=== PATIENT | female | born 1940 | race Caucasian/White ===

== ENCOUNTER 2023-08-03 07:40 | Outpatient (RCR) | payer MEDICARE, OTHER, SELFPAY ==
[2023-08-03 08:04] VITALS: BP 105/45; PULSE 68; RESP 18; TEMP 35.6; BMI 23.7
--- NOTE | 2023-08-03 09:19 | PCM.WC.HP ---
History of Present Illness Date of Service: 08/03/23 Chief Complaint: coccyx ulcer History of Wound: Dave is a sweet 82 yo woman that presents to the wound healing center today for evaluation and treatment of a coccyx ulcer that has been present for some time. She was referred here by [facility] where she resides in assisted living. She is paraplegic and was in custodial after she had a fall which caused her to have some nerve damage to her left arm and effected her ability to transfer herself but she has undergone PT and OT and is able to be mostly independent at this time and is able to perform transfers independently. She denies having problems with wound healing in the past. She is relatively healthy aside from her paraplegia. Initially, she was treating the ulcer with neosporin and gold stephens lotion but the nursing facility started using Santyl and a foam dressing approx. 07/26/23. She denies any pain, increased drainage or erythema. She recently was treated with Bactrim for a UTI. [facility] Medical History Emphysema/COPD Anemia Paraplegia Hx of spinal cord injury Home Medications ?Medication ?Instructions ?Recorded ?Last Taken ?Type calcium carbonate 600 mg-vitamin 1 tab PO DAILY 08/03/23 Unknown History D3 5 mcg (200 unit) tablet (Calcium 600 + D(3)) gabapentin 600 mg tablet 600 mg PO TID 08/03/23 Unknown History menthol-zinc oxide 0.2 %-20 % 1 applic topical TID 08/03/23 Unknown History topical paste (Remedy Calazime Protect Paste) morphine 15 mg tablet,extended 15 mg PO Q8H 08/03/23 Unknown History release (MS Contin) multivitamin with iron-mineral 1 tab PO DAILY 08/03/23 Unknown History oxybutynin chloride 10 mg 10 mg PO DAILY 08/03/23 Unknown History tablet,extended release 24 hr sertraline 100 mg tablet (Zoloft) 100 mg PO DAILY 08/03/23 Unknown History sulfamethoxazole 800 1 tab PO BID 08/03/23 Unknown History mg-trimethoprim 160 mg tablet (Bactrim DS) vit C 250 mg-vit E 90 mg-zinc 40 1 tab PO DAILY 08/03/23 Unknown History mg-copper 1 [id number] capsule (PreserVision AREDS-2) Allergy/AdvReac Type Severity Reaction Status Date / Time No Known Allergies Allergy Verified 08/03/23 08:21 Family History no significant family his no significant family history Surgical History Hx of lumbosacral spine surgery Social History Smoking Status: Never smoker ROS Constitutional Constitutional: Denies chills, fatigue or fever(s) Eyes Eyes: Denies blurry vision, change in vision or loss of vision ENT HEENT: Denies dysphagia, hearing loss or sore throat Cardiovascular Cardiovascular: Denies chest pain, edema or palpitations Respiratory/Chest Respiratory/Chest: Denies dry cough, dyspnea, dyspnea on exertion, productive cough or wheezing Gastrointestinal Gastrointestinal: Denies diarrhea, nausea or vomiting Genitourinary Genitourinary: Denies dysuria or polyuria Musculoskeletal Musculoskeletal: Denies arthralgias, joint stiffness or muscle weakness Integumentary Integumentary: Reports erythema and wounds Neurologic Neurologic: Denies dizziness, memory loss or weakness Psychiatric Psychiatric: Denies homicidal ideation or suicidal ideation Endocrine Endocrinology: Denies polydipsia, polyphagia or polyuria Hematologic/Lymphatic Hematologic/Lymphatic: Denies easy bleeding or easy bruising Allergic/Immunologic Allergic/Immunologic: Denies throat swelling, tongue swelling or urticaria Vital Signs Vital Signs Vital Signs: 08/03/23 08:04 Temperature 96.1 F L Temperature Source Temporal Pulse Rate 68 Respiratory Rate 18 Blood Pressure 105/45 L Blood Pressure Mean 65 Blood Pressure Source Monitor Blood Pressure Position Semi-Fowlers Blood Pressure Location Left Arm Oxygen Delivery Method Room Air Weight Weight: 65.771 kg Body Mass Index (BMI) 23.7 Physical Exam Const alert, oriented x3 and no apparent distress General Appearance: cooperative and comfortable HEENT normocephalic and head/scalp atraumatic Resp normal respiratory effort Effort and Inspection: able to speak in complete sentences Cardio regular rate and regular rhythm Skin Wounds: wounds noted Wound Narrative: as in clinical panel Psych mental status grossly normal, thought process normal, cooperative and affect normal Debridement Note Debridement Note Wound debrided: left buttock ulcer Laterality: Left Wound Grade/Stage: Stage III Type of Debridement: Excisional debridement Anesthesia Used: 5% Lidocaine Gel Depth: Down to and including healthy tissue and in the subcutaneous layer Percentage of wound debrided: 100 Instrument Used: 5mm curette Tissue Removed: Yellow slough, devitalized tissue Severity: Fat Layer Exposed Amount of bleeding with debridement: Mild Bleeding Controlled with: Compression and gauze Patient tolerated procedure: Patient tolerated procedure well Post-Debridement Measurements and Additional Note: Post-Debridement Measurements/Treatment RACHAEL - Nurse 1 - General Ulcer Assessment Start: 08/03/23 08:01 Freq: Status: Active Protocol: BAKARI Activity Type Activity Date Activity User E-sign Co-sign Detail Recorded Client Recorded Date Recorded By Document 08/03/23 08:04 KW ; 08/03/23 08:20 KW 08/03/23 08:04 WC - Today's Visit Information Type of service Initial Visit Arrival Mode Wheelchair Transfer Assistance Transfer Board Accompanied by sister Patient Identification Verified (Name & Yes ) Height and Weight Height 5 ft 5.5 in Weight 65.771 kg Weight in Pounds 145.0 lbs Weight Measurement Method Estimated by Patient Body Mass Index (BMI) 23.7 BMI Classification Normal BSA - Kylee 1.74 Vital Signs Temperature (97.8 F-99.1 F) 96.1 F L Temperature Source Temporal Pulse Rate (60-100) 68 Pulse Location Monitor Respiratory Rate (12-18) 18 Respiratory rate source Observation Oxygen Delivery Method Room Air Blood Pressure (90/60-120/80) 105/45 L Blood Pressure Mean 65 Source Monitor Position Semi-Fowlers Blood Pressure Location Left Arm History Since Last Visit- (Skip if this is Patient's initial visit) Left Footwear Regular Shoe Right Footwear Regular Shoe Pain Scale: 0-10 Numeric Is Patient Pain Free? Yes Communication Assessment Preferred language [place] [employer]poon Engagement Planning Operator Required No Able to Read Yes Able to Write Yes Communication Tools None Caregiver Communication Skills No Impairment Impairment Right Hearing Abillity Normal Left Hearing Abillity Normal Visual Assistive Devices Glasses Teaching Assessment Preferences Verbal,Written, Demonstration Barriers to Learning None Readiness To Learn Excellent Willingness to Engage in Self Management High Activies Readiness to Engage in Self Management High Activities Anxiety Level Calm Cooperation Cooperative Perception Coherent Interest in Health Problem Asks Questions Education Importance Acknowledges Need Does Patient Smoke tobacco or other Yes substances Smoking Status Never smoker Is Patient Diabetic No Functional Assessment Recent Decline in Ability to Perform Bathing,Lower Body Dressing, Toileting, Transferring Culture/Denominational/Client Analyst Cultural/Denominational Needs that may affect No Treatment Plan Would you allow our hospital pacu nurse to No meet you for the purpose of spiritual/ emotional support? Client Analyst to contact place of caodaism No WC - Nurse 1 - General Ulcer Measurement Start: 08/03/23 08:01 Freq: Status: Active Protocol: Activity Type Activity Date Activity User E-sign Co-sign Detail Recorded Client Recorded Date Recorded By Document 08/03/23 08:04 KW ; 08/03/23 08:20 KW 08/03/23 08:04 Wound Center Nurse 1 #1 Coccyx -Current Size (cm) - Length 1.4 -Current Size (cm) - Width 1 -Current Size (cm) - Depth 0.2 -Total Square Cm 1.4 -Date of Last Picture (Recall this 08/03/23 field) -Exudate Amt Small -Exudate Type Serosanguineous -Wound Margin Distinct, Outline Attached -Granulation Amt Medium (34-66%) -Granulation Quality [place] -Necrosis Amt Medium (34-66%) -Necrotic Tissue Type Adherent Slough -Texture (Elda-wound Skin Appearance) Assessed -Moisture (Elda-wound Skin Appearance) Maceration -Color (Elda-wound Skin Appearance) Assessed -Temperature (Elda-wound Skin No Abnormality Appearance) (Pt Warm) -Ulcer Cleansing Soap and Water -Foul Odor after Cleansing No -Anesthetic Used 5% Lidocaine Gel RACHAEL - Nurse 2 - General Ulcer CM Notes Start: 08/03/23 08:01 Freq: Status: Active Protocol: Activity Type Activity Date Activity User E-sign Co-sign Detail Recorded Client Recorded Date Recorded By Document 08/03/23 08:33 GM 08/03/23 08:46 08/03/23 08:33 Wound Center Nurse 2 -Time 08:34 -Correct Patient Yes -Correct Side, Site, Position Yes -Correct Procedure Yes -Procedure Performed Yes -Type of Procedure Debridement -Clinical Debridement Subcutaneous -Tissue Removed Subcutaneous -Post Debridement (cm) - Length 1.2 -Post Debridement (cm) - Width 1.0 -Post Debridement (cm) - Depth 0.2 -Total Square (Post) (cm) 1.20 -Area of Debridement (cm) - Length 1.2 -Area of Debridement (cm) - Width 1.0 -Total Square (Area) (cm) 1.20 -Tunneling No -Undermining/Tunneling No -Circular Undermining No -Wound/Ulcer Outcome Not Healed -Ulcer Cleansing Rinsed/ Irrigated with Saline -Foul Odor after Cleansing No -Bioengineered Tissue No -Bleeding Controlled with Pressure -Treatment Response Procedure Tolerated Well -Debridement - Subq, 1st 20sq cm Yes Pain Scale: 0-10 Numeric Is Patient Pain Free? Yes Assessment/Plan Assessment/Plan (1) Decubitus ulcer of coccygeal region, stage 3: CODE(S): L89.153 - Pressure ulcer of sacral region, stage 3 (2) Emphysema/COPD: CODE(S): J43.9 - Emphysema, unspecified QUALIFIERS: Emphysema type: unspecified Qualified Code(s): J43.9 - Emphysema, unspecified (3) Anemia: CODE(S): D64.9 - Anemia, unspecified QUALIFIERS: Anemia type: unspecified type Qualified Code(s): D64.9 - Anemia, unspecified (4) Paraplegia: CODE(S): G82.20 - Paraplegia, unspecified (5) Polyneuropathy: CODE(S): G62.9 - Polyneuropathy, unspecified (6) Venous insufficiency: CODE(S): I87.2 - Venous insufficiency (chronic) (peripheral) PLAN: Plan Debridement performed today in clinic as annotated above. At home wound-care instructions: Will have her dress the ulcer with Promogran moistened with saline lightly and cover with silicone foam dressing changed daily for moderate drainage. Keep dressing clean and dry. Off-loading: The patient was instructed to avoid pressure and friction on the affected areas. Reposition every 2 hours at minimum. Avoid prolonged standing and/or dangling of legs. When seated, feet should be elevated at chest level. Frequent ambulation is encouraged. Diet: Patient encouraged to increase protein intake while taking caution to avoid high carbohydrate and/or sugar intake. Labs/cultures/imaging: Wound culture taken today. Follow-up: Return in 2 weeksfor wound care follow up. Return sooner or report to the emergency room should symptoms worsen, or new symptoms arise. Note: [employer] speech recognition school psychological examiner software was used to create portions of this document. Sound-alike and misspelled words, as well as other school psychological examiner errors may be contained in the documentation.
== END 2023-08-05 23:59 | disposition home or self-care (01) ==
LOC: WC 07:40
PROVIDERS: PCP Family Medicine; Referring Provider Family Medicine; Visit Provider Family Medicine
DX: I87.2 Venous insufficiency (chronic) (peripheral) (principal); L89.153 Pressure ulcer of sacral region, stage 3; G82.20 Paraplegia, unspecified; J43.9 Emphysema, unspecified; D64.9 Anemia, unspecified; G62.9 Polyneuropathy, unspecified
CPT/HCPCS: 11042; 87070; 87075; 87077; 87186; 87205; 99203; G0463

== ENCOUNTER 2023-08-31 09:00 | Outpatient (RCR) | payer MEDICARE, OTHER, SELFPAY ==
[2023-08-06 00:51] VITALS: BP 105/45; PULSE 68; RESP 18; TEMP 35.6; BMI 23.7
[2023-08-17 08:44] VITALS: BP 98/42; PULSE 69; RESP 18; TEMP 35.8; BMI 23.7
--- NOTE | 2023-08-17 12:54 | PN.PCM_ITS ---
History of Present Illness Date of Service: 08/17/23 Chief Complaint: coccyx ulcer History of Wound: Dave is a sweet 82 yo woman that presents to the wound healing center today for evaluation and treatment of a coccyx ulcer that has been present for some time. She was referred here by [facility] where she resides in assisted living. She is paraplegic and was in fdc after she had a fall which caused her to have some nerve damage to her left arm and effected her ability to transfer herself but she has undergone PT and OT and is able to be mostly independent at this time and is able to perform transfers independently. She denies having problems with wound healing in the past. She is relatively healthy aside from her paraplegia. Initially, she was treating the ulcer with neosporin and gold stephens lotion but the nursing facility started using Santyl and a foam dressing approx. 07/26/23. She denies any pain, increased drainage or erythema. She recently was treated with Bactrim for a UTI. Subjective Subjective Dave is here today for follow up of coccyx ulcer. She has been tolerating treatment with Promogran and foam dressings. The ulcer is decreased in size. She denies pain, increased drainage or odor. Objective Data Objective Data Vital Signs: Vital Signs Temp Pulse Resp BP O2 Del Method 96.5 F L 69 18 98/42 L Room Air 08/17/23 08:44 08/17/23 08:44 08/17/23 08:44 08/17/23 08:44 08/17/23 08:44 Oxygen Delivery Method Room Air Weight: 65.771 kg Body Mass Index (BMI) 23.7 Physical Exam Const alert, oriented x3 and no apparent distress General Appearance: cooperative and comfortable HEENT normocephalic and head/scalp atraumatic Resp normal respiratory effort Effort and Inspection: able to speak in complete sentences Cardio regular rate and regular rhythm Skin Wounds: wounds noted Wound Narrative: as in clinical panel Psych mental status grossly normal, thought process normal, cooperative and affect normal Debridement Note Debridement Note Wound debrided: coccyx Laterality: Not Applicable Wound Grade/Stage: Stage 3 Type of Debridement: Excisional debridement Anesthesia Used: 4% Lidocaine Solution and 5% Lidocaine Gel Depth: Down to and including healthy tissue and in the subcutaneous layer Percentage of wound debrided: 100 Instrument Used: 3mm curette Severity: Fat Layer Exposed Amount of bleeding with debridement: Mild Bleeding Controlled with: Compression and gauze Patient tolerated procedure: Patient tolerated procedure well Post-Debridement Measurements and Additional Note: Post-Debridement Measurements/Treatment - Nurse 1 - General Ulcer Assessment Start: 08/17/23 08:44 Freq: Status: Active Protocol: BAKARI Activity Type Activity Date Activity User E-sign Co-sign Detail Recorded Client Recorded Date Recorded By Document 08/17/23 08:44 KW ' 08/17/23 09:10 KW 08/17/23 08:44 WC - Today's Visit Information Type of service Follow-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 ) Arrival Mode Ambulatory Patient Identification Verified (Name & Yes ) Height and Weight Body Mass Index (BMI) 23.7 BMI Classification Normal Vital Signs Temperature (97.8 F-99.1 F) 96.5 F L Temperature Source Temporal Pulse Rate (60-100) 69 Pulse Location Monitor Respiratory Rate (12-18) 18 Respiratory rate source Observation Oxygen Delivery Method Room Air Blood Pressure (90/60-120/80) 98/42 L Blood Pressure Mean (mm Hg) 60 Source Monitor Position Sitting Blood Pressure Location Right Arm History Since Last Visit- (Skip if this is Patient's initial visit) Have you changed medications since your No last visit? Any new allergies or adverse reactions No Had a fall/change in ADL's that may No increase risk of falls Signs or symptoms of abuse and/or No neglect since last visit Have you been in the hospital since your No last visit? Has dressing in place as prescribed Yes Has compression in place as prescribed Yes Has offloadiing in place as prescribed N/A Experienced any changes in pain level or No management Left Footwear Regular Shoe Right Footwear Regular Shoe Pain Scale: 0-10 Numeric Is Patient Pain Free? Yes - Nurse 1 - General Ulcer Measurement Start: 08/17/23 08:44 Freq: Status: Active Protocol: Activity Type Activity Date Activity User E-sign Co-sign Detail Recorded Client Recorded Date Recorded By Document 08/17/23 09:23 DS 1 08/17/23 09:24 DS 08/17/23 09:23 Wound Center Nurse 1 #1 Coccyx -Current Size (cm) - Length 0.4 -Current Size (cm) - Width 0.8 -Current Size (cm) - Depth 0.1 -Total Square Cm 0.32 -Photo Taken No -Tunneling No -Undermining/Tunneling No -Circular Undermining No -Wound Margin Distinct, Outline Attached -Granulation Amt Medium (34-66%) -Granulation Quality [place] -Necrosis Amt Small (1-33%) -Necrotic Tissue Type Adherent Slough -Texture (Elda-wound Skin Appearance) Assessed -Moisture (Elda-wound Skin Appearance) Assessed -Color (Elda-wound Skin Appearance) Assessed -Temperature (Elda-wound Skin No Abnormality Appearance) (Pt Warm) -Tenderness on Palpation (Elda-wound No Skin Appearance) -Ulcer Cleansing Soap and Water -Anesthetic Used 5% Lidocaine Gel - Nurse 2 - General Ulcer CM Notes Start: 08/17/23 08:44 Freq: Status: Active Protocol: Activity Type Activity Date Activity User E-sign Co-sign Detail Recorded Client Recorded Date Recorded By Document 08/17/23 09:27 GM 08/17/23 09:33 08/17/23 09:27 Wound Center Nurse 2 -Time 09:27 -Correct Patient Yes -Correct Side, Site, Position Yes -Correct Procedure Yes -Procedure Performed Yes -Type of Procedure Debridement -Clinical Debridement Subcutaneous -Tissue Removed Subcutaneous -Post Debridement (cm) - Length 0.3 -Post Debridement (cm) - Width 1.0 -Post Debridement (cm) - Depth 0.1 -Total Square (Post) (cm) 0.30 -Area of Debridement (cm) - Length 0.3 -Area of Debridement (cm) - Width 1.0 -Total Square (Area) (cm) 0.30 -Tunneling No -Undermining/Tunneling No -Circular Undermining No -Wound/Ulcer Outcome Not Healed -Bleeding Controlled with Pressure -Treatment Response Procedure Tolerated Well -Debridement - Subq, 1st 20sq cm Yes Pain Scale: 0-10 Numeric Is Patient Pain Free? Yes - Nurse 3 - General Ulcer D/C NN Start: 08/17/23 08:44 Freq: Status: Active Protocol: Activity Type Activity Date Activity User E-sign Co-sign Detail Recorded Client Recorded Date Recorded By Document 08/17/23 10:08 KW ' 08/17/23 10:09 KW 08/17/23 10:08 Wound Care Center Nurse 3 #1 Coccyx -Primary Dressing Applied Mepilex Border, Promogran -Mepilex Border 1 -Promogran 1 Pain Scale: 0-10 Numeric Is Patient Pain Free? Yes WC - Visit Discharge Discharge Condition Stable Ambulatory Status Wheelchair Medication Reconcilliation completed & No provided to patient/care provider Clinical Summary of Care Provided Yes Assessment/Plan Assessment/Plan (1) Decubitus ulcer of coccygeal region, stage 3: CODE(S): L89.153 - Pressure ulcer of sacral region, stage 3 (2) Emphysema/COPD: CODE(S): J43.9 - Emphysema, unspecified QUALIFIERS: Emphysema type: unspecified Qualified Code(s): J43.9 - Emphysema, unspecified (3) Anemia: CODE(S): D64.9 - Anemia, unspecified QUALIFIERS: Anemia type: unspecified type Qualified Code(s): D6 4.9 - Anemia, unspecified (4) Paraplegia: CODE(S): G82.20 - Paraplegia, unspecified (5) Polyneuropathy: CODE(S): G62.9 - Polyneuropathy, unspecified (6) Venous insufficiency: CODE(S): I87.2 - Venous insufficiency (chronic) (peripheral) PLAN: Plan Debridement performed today in clinic as annotated above. At home wound-care instructions: Will have her continue to dress the ulcer with Promogran moistened with saline lightly and cover with silicone foam dressing changed daily for moderate drainage. Keep dressing clean and dry. Off-loading: The patient was instructed to avoid pressure and friction on the affected areas. Reposition every 2 hours at minimum. Avoid prolonged standing and/or dangling of legs. When seated, feet should be elevated at chest level. Frequent ambulation is encouraged. Diet: Patient encouraged to increase protein intake while taking caution to avoid high carbohydrate and/or sugar intake. Labs/cultures/imaging: Wound culture taken showed Staph and anaerobic bacteria. Will start her on treatment with Linezolid. Follow-up: Return in 2 weeks for wound care follow up. Return sooner or report to the emergency room should symptoms worsen, or new symptoms arise. Note: [employer] speech recognition head of research & insights software was used to create portions of this document. Sound-alike and misspelled words, as well as other head of research & insights errors may be contained in the documentation.
[2023-08-31 09:14] VITALS: BP 124/54; PULSE 82; RESP 18; TEMP 35.9; BMI 23.7
--- NOTE | 2023-08-31 13:15 | PN.PCM_ITS ---
History of Present Illness Date of Service: 08/31/23 Chief Complaint: coccyx ulcer History of Wound: Dave is a sweet 82 yo woman that presents to the wound healing center today for evaluation and treatment of a coccyx ulcer that has been present for some time. She was referred here by [facility] where she resides in assisted living. She is paraplegic and was in group home after she had a fall which caused her to have some nerve damage to her left arm and effected her ability to transfer herself but she has undergone PT and OT and is able to be mostly independent at this time and is able to perform transfers independently. She denies having problems with wound healing in the past. She is relatively healthy aside from her paraplegia. Initially, she was treating the ulcer with neosporin and gold stephens lotion but the nursing facility started using Santyl and a foam dressing approx. 07/26/23. She denies any pain, increased drainage or erythema. She recently was treated with Bactrim for a UTI. Subjective Subjective Dave is healed today. She denies pain, increased drainage or odor. Objective Data Objective Data Vital Signs: Vital Signs Temp Pulse Resp BP O2 Del Method 96.6 F L 82 18 124/54 H Room Air 08/31/23 09:14 08/31/23 09:14 08/31/23 09:14 08/31/23 09:14 08/17/23 08:44 Oxygen Delivery Method Room Air Weight: 65.771 kg Body Mass Index (BMI) 23.7 Physical Exam Const alert, oriented x3 and no apparent distress General Appearance: cooperative and comfortable HEENT normocephalic and head/scalp atraumatic Resp normal respiratory effort Effort and Inspection: able to speak in complete sentences Cardio regular rate and regular rhythm Skin Wounds: wounds noted Wound Narrative: as in clinical panel Psych mental status grossly normal, thought process normal, cooperative and affect normal Debridement Note Debridement Note Wound debrided: coccyx Laterality: Not Applicable Patient tolerated procedure: Patient tolerated procedure well Post-Debridement Measurements and Additional Note: Post-Debridement Measurements/Treatment RACHAEL - Nurse 1 - General Ulcer Assessment Start: 08/17/23 08:44 Freq: Status: Active Protocol: [email or web address] Activity Type Activity Date Activity User E-sign Co-sign Detail Recorded Client Recorded Date Recorded By Document 08/17/23 08:44 KW ' 08/17/23 09:10 KW Document 08/31/23 09:14 RB wound 08/31/23 09:16 RB 08/17/23 08/31/23 08:44 09:14 - Today's Visit Information Type of service Follow-up Visit Follow-up Visit (Physician/PUBLIC RELATIONS SUPERVISOR (Physician/PUBLIC RELATIONS SUPERVISOR ) ) Arrival Mode Ambulatory Wheelchair Transfer Assistance Manual Patient Identification Verified (Name & Yes Yes ) Patient Requires Transmission-Based No Precautions Height and Weight Body Mass Index (BMI) 23.7 23.7 BMI Classification Normal Normal Vital Signs Temperature (97.8 F-99.1 F) 96.5 F L 96.6 F L Temperature Source Temporal Temporal Pulse Rate (60-100) 69 82 Pulse Location Monitor Monitor Respiratory Rate (12-18) 18 18 Respiratory rate source Observation Observation Oxygen Delivery Method Room Air Blood Pressure (90/60-120/80) 98/42 L 124/54 H Blood Pressure Mean (mm Hg) 60 77 Source Monitor Monitor Position Sitting Semi-Fowlers Blood Pressure Location Right Arm Left Arm History Since Last Visit- (Skip if this is Patient's initial visit) Have you changed medications since your No No last visit? Any new allergies or adverse reactions No No Had a fall/change in ADL's that may No No increase risk of falls Signs or symptoms of abuse and/or No No neglect since last visit Have you been in the hospital since your No No last visit? Has dressing in place as prescribed Yes Yes Has compression in place as prescribed Yes No Has offloadiing in place as prescribed N/A No Experienced any changes in pain level or No No management Left Footwear Regular Shoe Right Footwear Regular Shoe Pain Scale: 0-10 Numeric Is Patient Pain Free? Yes Yes - Nurse 1 - General Ulcer Measurement Start: 08/17/23 08:44 Freq: Status: Active Protocol: Activity Type Activity Date Activity User E-sign Co-sign Detail Recorded Client Recorded Date Recorded By Document 08/17/23 09:23 DS 1 08/17/23 09:24 DS Document 08/31/23 09:14 RB wound 08/31/23 09:16 RB 08/17/23 08/31/23 09:23 09:14 Wound Center Nurse 1 #1 Coccyx -Combined with other wound No -Current Size (cm) - Length 0.4 0 -Current Size (cm) - Width 0.8 0 -Current Size (cm) - Depth 0.1 0 -Total Square Cm 0.32 0 -Photo Taken No Yes -Epithelialization Large 67-100% -Tunneling No No -Undermining/Tunneling No No -Circular Undermining No No -Exudate Amt None Present -Wound Margin Distinct, Outline Attached -Granulation Amt Medium (34-66%) Large (67-100%) -Granulation Quality [place] -Necrosis Amt Small (1-33%) -Necrotic Tissue Type Adherent Slough -Structure Exposed N/A -Texture (Elda-wound Skin Appearance) Assessed Assessed -Moisture (Elda-wound Skin Appearance) Assessed Assessed -Color (Elda-wound Skin Appearance) Assessed Assessed -Temperature (Elda-wound Skin No Abnormality No Abnormality Appearance) (Pt Warm) (Pt Warm) -Tenderness on Palpation (Elda-wound No No Skin Appearance) -Ulcer Cleansing Soap and Water -Anesthetic Used 5% Lidocaine Gel - Nurse 2 - General Ulcer CM Notes Start: 08/17/23 08:44 Freq: Status: Active Protocol: Activity Type Activity Date Activity User E-sign Co-sign Detail Recorded Client Recorded Date Recorded By Document 08/17/23 09:27 [facility] 08/17/23 09:33 Document 08/31/23 09:19 [facility] [email or web address] 08/31/23 09:24 [facility] 08/17/23 08/31/23 09:27 09:19 Wound Center Nurse 2 #1 Coccyx -Time 09:27 -Correct Patient Yes -Correct Side, Site, Position Yes -Correct Procedure Yes -Procedure Performed Yes -Type of Procedure Debridement -Clinical Debridement Subcutaneous -Tissue Removed Subcutaneous -Post Debridement (cm) - Length 0.3 0 -Post Debridement (cm) - Width 1.0 0 -Post Debridement (cm) - Depth 0.1 0 -Total Square (Post) (cm) 0.30 0 -Area of Debridement (cm) - Length 0.3 0 -Area of Debridement (cm) - Width 1.0 0 -Total Square (Area) (cm) 0.30 0 -Tunneling No -Undermining/Tunneling No -Circular Undermining No -Wound/Ulcer Outcome Not Healed Healed- Epithelialized -Bleeding Controlled with Pressure NA -Treatment Response Procedure Tolerated Well -Debridement - Subq, 1st 20sq cm Yes Pain Scale: 0-10 Numeric Is Patient Pain Free? Yes Yes - Nurse 3 - General Ulcer D/C NN Start: 08/17/23 08:44 Freq: Status: Active Protocol: Activity Type Activity Date Activity User E-sign Co-sign Detail Recorded Client Recorded Date Recorded By Document 08/17/23 10:08 KW ' 08/17/23 10:09 KW Document 08/31/23 09:31 BM [email or web address] 08/31/23 09:32 BMF 08/17/23 08/31/23 10:08 09:31 Wound Care Center Nurse 3 #1 Coccyx -Primary Dressing Applied Mepilex Border, Promogran -Mepilex Border 1 -Promogran 1 Pain Scale: 0-10 Numeric Is Patient Pain Free? Yes Yes WC - Visit Discharge Discharge Condition Stable Stable Ambulatory Status Wheelchair Wheelchair Transportation ECF Medication Reconcilliation completed & No provided to patient/care provider Clinical Summary of Care Provided Yes Facility Type [facility] Care Facility Notes: HEALED. DISCHARGE Assessment/Plan Assessment/Plan (1) Decubitus ulcer of coccygeal region, stage 3: CODE(S): L89.153 - Pressure ulcer of sacral region, stage 3 (2) Emphysema/COPD: CODE(S): J43.9 - Emphysema, unspecified QUALIFIERS: Emphysema type: unspecified Qualified Code(s): J43.9 - Emphysema, unspecified (3) Anemia: CODE(S): D64.9 - Anemia, unspecified QUALIFIERS: Anemia type: unspecified type Qualified Code(s): D64.9 - Anemia, unspecified (4) Paraplegia: CODE(S): G82.20 - Paraplegia, unspecified (5) Polyneuropathy: CODE(S): G62.9 - Polyneuropathy, unspecified (6) Venous insufficiency: CODE(S): I87.2 - Venous insufficiency (chronic) (peripheral) PLAN: Plan Evaluation performed today in clinic as annotated above. At home wound-care instructions: Will have her apply calmoseptine to protect the new skin. Off-loading: The patient was instructed to avoid pressure and friction on the affected areas. Reposition every 2 hours at minimum. Avoid prolonged standing and/or dangling of legs. When seated, feet should be elevated at chest level. Frequent ambulation is encouraged. Diet: Patient encouraged to increase protein intake while taking caution to avoid high carbohydrate and/or sugar intake. Labs/cultures/imaging: Wound culture taken showed Staph and anaerobic bacteria. Will start her on treatment with Linezolid. Follow-up: It has been a pleasure treating her and we would be happy to help with any wounds in the future if needed. Note: [employer] speech recognition electric power line examiner software was used to create portions of this document. Sound-alike and misspelled words, as well as other electric power line examiner errors may be contained in the documentation.
--- NOTE | 2023-09-05 12:18 | WC ---
PHOTO 08/31/2023 (H)
== END 2023-09-05 23:59 | disposition home or self-care (01) ==
LOC: WC 09:00
PROVIDERS: PCP Family Medicine; Referring Provider Family Medicine; Visit Provider Family Medicine
DX: L89.153 Pressure ulcer of sacral region, stage 3 (principal); G82.20 Paraplegia, unspecified; J43.9 Emphysema, unspecified; D64.9 Anemia, unspecified; I87.2 Venous insufficiency (chronic) (peripheral); G62.9 Polyneuropathy, unspecified
CPT/HCPCS: 11042; 99213; G0463